=== PATIENT | male | born 1955 | race Caucasian/White ===

== ENCOUNTER 2020-08-07 16:37 | Emergency (ER) | payer BC, SELFPAY ==
[2020-08-07 16:45] VITALS: BMI 28.0
--- NOTE | 2020-08-07 16:45 | CT_ITS ---
PROCEDURE: CT HEAD/BRAIN WO CON Referring Doctor: Royal Zhang Patient Age:65Y CLINICAL INDICATION: fall with laceration left side of head COMPARISON: CT CT CERVICAL SPINE WO CON from 08/07/2020 TECHNIQUE: No IV contrast. Standard axial images were obtained. All CT scans at the facility use one or more dose reduction, viz: automated exposure control, ma/kV adjustment per patient size (including targeted exams where dose is matched to indication, i.e. head), or iterative reconstruction technique. FINDINGS: No acute intracranial findings. No intracranial hemorrhage. No hydrocephalus.The ventricles and basal cisterns appear clear and satisfactory. No mass or midline shift nor mass effect. No subdural or extra-axial fluid collection is evident. Posterior fossa unremarkable. There is a laceration at the left forehead and left scalp anteriorly on left. Soft tissue irregularity and mild swelling here underlying skull intact no skull fracture or lesion. The visualized paranasal sinuses are clear except to note some mild mucosal thickening at left ethmoid air cells more so than right. Nomastoid effusions. Mastoid air cells are well developed and clear. Middle ear clear. IAC's symmetric. Moderate cerumen at the external auditory canal on right. IMPRESSION: No acute intracranial findings Negative CT brain Laceration and posttraumatic soft tissue irregularities at left forehead and anterior left scalp-with underlying skull intact Dictated by: Simon Yang MD 08/07/2020 17:25 Simon Yang MD in [facility] 08/07/2020 17:25
--- NOTE | 2020-08-07 16:45 | CT_ITS ---
PROCEDURE: CT CERVICAL SPINE WO CON Referring Doctor: Royal Zhang Patient Age:65Y CLINICAL INDICATION: fall with laceration to the left forehead. Headache. Neck pain COMPARISON: No exams were available for comparison TECHNIQUE: No IV contrast Helical axial images obtained with sagittal and coronal reformats. All CT scans at the facility use one or more dose reduction, viz: automated exposure control, ma/kV adjustment per patient size (including targeted exams where dose is matched to indication, i.e. head), or iterative reconstruction technique. FINDINGS: Cervical spine with no fracture nor subluxation.. Normal prevertebral soft tissues. Satisfactory alignment with slight nonspecific straightening C-spine which most likely positional but can reflect muscle spasm related to recent injury Multilevel degenerative changes degenerative disc changes and cervical spondylosis C4/5 degenerative disc space narrowing with mild diffuse posterior osteophytic ridging most evident left paracentral region, with features slightly indenting the anterior thecal sac more to the left. C5/6. A prominent degenerative disc space narrowing. Again cervical spondylosis with diffuse posterior osteophytic ridging most evident just the left of midline. Features slightly indents thecal sac midline and to the left. The spurring yields [id number] bilateral foraminal encroachment which is most evident at this level. C6/7. Degenerative disc space narrowing. Spondylosis minor posterior ridging most evident towards right paracentral. The cervicocranial junction intact. C1-C2 with normal relationships and appearance.. Only mild degenerative facet changes throughout. Satisfactory relationships but spinous processes intact.. Apices of lungs are clear. A scattered small reactive nodes throughout the neck no prominent mass or findings. Cerumen seen at the external auditory canals bilaterally.. Un erupted posterior molar is seen at the posterior aspect of the right maxillary sinus maxillary sinus IMPRESSION: Cervical spine intact with no acute fracture nor subluxation. Multilevel degenerative disc changes and cervical spondylosis-most evident C5/6; followed by C4/5 and C6/7 Dictated by: Simon Yang MD 08/07/2020 17:35 Simon Yang MD in [facility] 08/07/2020 17:35
--- NOTE | 2020-08-07 16:48 | XR_ITS ---
PROCEDURE: XR CHEST 2V CLINICAL HISTORY: fall COMPARISON: No exams were available for comparison FINDINGS: The cardiomediastinal silhouette and pulmonary vascularity are within normal limits except for mild aortic tortuosity. The lungs are clear without infiltrates, suspicious nodules, or pleural effusions. No acute bony abnormalities. There is mild kyphotic curvature of the thoracic spine with mild degenerate changes lower thoracic spine. There is an apparent fracture of the lateral right clavicle with slight AC separation with the clavicle angulated upward somewhat. The right humeral head and glenoid appear intact. IMPRESSION: Probable fracture lateral right clavicle with slight AC separation, without old films for comparison this could possibly be an old fracture ununited and suggest clinical correlation for tenderness at the AC joint. Dictated by: Dr. Edenilson Burch MD 08/07/2020 20:17 Dr. Edenilson Burch MD in [facility] 08/07/2020 20:17
--- NOTE | 2020-08-07 16:48 | XR_ITS ---
PROCEDURE: XR PELVIS 1-2V CLINICAL INDICATION: fall COMPARISON: No exams were available for comparison TECHNIQUE: XR Pelvis AP View FINDINGS: No fracture or dislocation is evident. There is a spherical sclerotic lesion proximal right femur at the level of the lesser trochanter and this likely is a bone island bone infarct. It may be helpful to have a bone scan however since there are no previous studies for comparison. No lytic or blastic change. IMPRESSION: Probable bone island or bone infarct right proximal femur, see discussion above, no acute fracture identified Dictated by: Dr. Edenilson Burch MD 08/07/2020 20:20 Dr. Edenilson Burch MD in [facility] 08/07/2020 20:20
[2020-08-07 16:52] VITALS: BP 191/98; PULSE 97; RESP 18; TEMP 36.8; O2SAT 97; BMI 28.0
--- NOTE | 2020-08-07 16:53 | [facility].EDGENADL ---
ED Disposition Clinical Impression: Forehead laceration Qualifiers: Encounter type: initial encounter Qualified Code(s): S01.81XA - Laceration without foreign body of other part of head, initial encounter Forehead contusion Qualifiers: Encounter type: initial encounter Qualified Code(s): S00.83XA - Contusion of other part of head, initial encounter Forehead abrasion Qualifiers: Encounter type: initial encounter Qualified Code(s): S00.81XA - Abrasion of other part of head, initial encounter Disposition: Home, Self-Care Condition on Discharge: Good Instructions: DI for Laceration Repair, DI for Closed Head Injury Additional Instructions: Tylenol for pain. Ice for swelling. Additional instructions for HEAD INJURY: See your physician as soon as possible for further evaluation. Return immediately if severe headache, vomiting, problems with vision or speech, numbness or weakness of the extremities, or severe neck pain. Additional instructions for FACIAL LACERATION: Clean the wound daily with soap and water. You may shower. Apply a thin film of antibiotic ointment such as neosporin or triple antibiotic after showering. Avoid submerging the wound, no swimming. See your primary care physician or return to the [facility] in 7 days for suture removal. The [facility] is open 9 AM to 9 PM 7 days a week. Return if any signs of infection including increasing pain, pus drainage, swelling, redness, red streaks, or fever. Referrals: Tiana Martínez [Primary Care Provider] - - Critical Care Critical Care Time: No Attestation: On 08/07/20, the high probability of a clinically significant, sudden or life threatening deterioration of the following system(s) required my full and direct attention, intervention and personal management. The time I documented below is in addition to time spent performing reported procedures but includes the following listed in this critical care notation. Medical Decision Making - [place] Inquiry Pt receiving controlled substance: No Vital Signs: 08/07/20 16:52 08/07/20 18:28 Temperature 98.2 F 98.2 F Temperature Source Oral Oral Pulse Rate 85 Pulse Rate [Right Radial] 97 H Respiratory Rate 18 17 Blood Pressure 158/76 H Blood Pressure [Right Arm] 191/98 H Blood Pressure Mean [Right Arm] 129 02 Sat by Pulse Oximetry 97 Oxygen Delivery Method Room Air Room Air - Lab Data Lab results reviewed: Yes: I reviewed the patient's lab results. Lab Results 08/07/20 16:50: WBC 6.8, RBC 5.40, Hgb 16.0, Hct 48.7, MCV 90.3, MCH 29.6, MCHC 32.8, RDW 13.3, Plt Count 220, MPV 7.0 L, Neut % (Auto) 55.0, Lymph % (Auto) 32.2, Cecil % (Auto) 4.5, Eos % (Auto) 7.2, Baso % (Auto) 1.1, Neut # (Auto) 3.7, Lymph # (Auto) 2.2, Cecil # (Auto) 0.3, Eos # (Auto) 0.5 H, Baso # (Auto) 0.1 08/07/20 16:50: Sodium 145, Potassium 4.3, Chloride 107, Carbon Dioxide 30, Anion Gap 12.3, BUN 20, Creatinine 1.20, Estimated Creat Clear 76, Estimated GFR 61, Est GFR ( Amer) 74, Glucose 130 H, Calcium 9.7, Total Bilirubin 0.4, AST 29, ALT 21, Alkaline Phosphatase 93, Total Protein 7.7, Albumin 4.5, Globulin 3.2, Albumin/Globulin Ratio 1.4 Result diagrams: 08/07/20 16:50 08/07/20 16:50 Orders (Tests/Meds): ED MEDICATIONS Discontinued Medications Generic Name Dose Route Start Last Admin Trade Name Freq PRN Reason Stop Dose Admin Lidocaine/Epinephrine 10 ml 08/07/20 16:53 08/07/20 17:09 Lidocaine 2% W/Epi 1:100,000 20ml Vial IJ 08/07/20 16:54 10 ml ONCE ONE Administration Tetanus/Reduced Diphtheria/Acell Pertussis 0.5 ml 08/07/20 16:45 08/07/20 18:14 Tet/Diphth/Pert-Adult 0.5ml Syringe IM 08/07/20 16:46 0.5 ml .ONCE ONE Administration ORDERS Category Date Time Status XR chest 2V Stat Exams 08/07/20 16:48 Taken XR pelvis 1-2V Stat Exams 08/07/20 16:48 Taken - Radiology Data #1 Image(s): Chest, Pelvis Image Reviewed: Yes I reviewed the patient'
[2020-08-07 16:54] LABS: Basophils # 0.1 K/mm3 (0-0.2); Basophils % 1.1 % (0.1-2.0); Eosinophils # 0.5 K/mm3 (0.0-0.4); Eosinophils % 7.2 % (0.1-12.0); Hematocrit 48.7 % (42.0-52.0); Lymphocytes # 2.2 K/mm3 (0.7-4.5); Lymphocytes % 32.2 % (10-50); Mean Corpuscular HGB Conc 32.8 g/dL (31.8-35.4); Mean Corpuscular Hemoglobin 29.6 pg (27.0-31.2); Mean Corpuscular Volume 90.3 fl (80-94); Monocytes # 0.3 K/mm3 (0.1-1.0); Monocytes % 4.5 % (1.7-9.3); Neutrophils # 3.7 K/mm3 (1.8-7.8); Platelet Count 220 K/mm3 (142-424); Red Cell Distribution Width 13.3 % (11.5-17.5); White Blood Count 6.8 K/mm3 (4.8-10.8)
[2020-08-07 17:03] LABS: Alanine Aminotransferase 21 U/L (12-78); Albumin Level 4.5 g/dl (3.5-5.0); Albumin/Globulin Ratio 1.4 (1.1-1.8); Alkaline Phosphatase 93 U/L (38-126); Anion Gap 12.3 mEq/L (5-15); Aspartate Amino Transferase 29 U/L (17-59); Bilirubin,Total 0.4 mg/dl (0.2-1.3); Blood Urea Nitrogen 20 mg/dl (9-20); Calcium 9.7 mg/dl (8.4-10.2); Carbon Dioxide 30 mmol/L (22.0-30.0); Chloride 107 mmol/L (98-107); Creatinine Clearance Estimated 76 mL/min (50-200); Estimated Glomerular Filt Rate 61 ml/min (>60); GFR (African American) 74 ML/MIN (>60); Globulin 3.2 g/dL (1.3-3.2); Glucose 130 mg/dl (74-100); Potassium 4.3 mmoL/L (3.5-5.1); Sodium 145 mmol/L (136-145); Total Protein,Serum 7.7 g/dl (6.3-8.2)
--- NOTE | 2020-08-07 17:30 | PC.NURSE ---
Dr Zhang at bedside for suturing. pt tolerating well.
--- NOTE | 2020-08-07 17:45 | PC.NURSE ---
pt and family updated on plan of care. both verbalize understanding.
--- NOTE | 2020-08-07 18:15 | PC.NURSE ---
clean dry non adherent dressing applied to laceration. pt educated thoroughly on s/sx of site infection. pt and verbalize understanding and deny questions.
[2020-08-07 18:28] VITALS: BP 158/76; PULSE 85; RESP 17; TEMP 36.8; O2SAT 99
== END 2020-08-07 18:39 | disposition home or self-care (01) ==
PROVIDERS: Emergency Provider Emergency Medicine; PCP Family Medicine
DX: S01.81XA Laceration without foreign body of other part of head, initial encounter (principal); S00.83XA Contusion of other part of head, initial encounter; S00.81XA Abrasion of other part of head, initial encounter; Z23 Encounter for immunization; W17.89XA Other fall from one level to another, initial encounter; Y92.73 Farm field as the place of occurrence of the external cause
CPT/HCPCS: 12002; 70450; 71046; 72125; 72170; 80053; 85025; 90471; 90715; 99283